=== PATIENT | female | born 1935 | race Two or more races ===

== ENCOUNTER 2017-11-08 07:18 | Outpatient (CLI) | payer OTHER | END 2017-11-08 08:00 | disposition home or self-care (01) | LOC: NUCLEAR 07:18 | DX: I11.9 Hypertensive heart disease without heart failure (principal); I20.0 Unstable angina | CPT/HCPCS: 78452; 93017; A9500 ==

== ENCOUNTER 2018-01-26 07:25 | Outpatient (CLI) | payer OTHER | END 2018-01-26 07:31 | disposition home or self-care (01) | LOC: TOM 07:25 | DX: K56.600 Partial intestinal obstruction, unspecified as to cause (principal); K56.51 Intestinal adhesions [bands], with partial obstruction; K63.5 Polyp of colon ==

== ENCOUNTER 2018-07-05 07:20 | Outpatient (CLI) | payer OTHER | END 2018-07-05 07:23 | disposition home or self-care (01) | LOC: SONOGRAMA 07:20 | DX: E03.0 Congenital hypothyroidism with diffuse goiter (principal); E04.8 Other specified nontoxic goiter ==

== ENCOUNTER 2018-07-08 13:05 | Outpatient (CLI) | payer OTHER | END 2018-07-08 13:15 | disposition home or self-care (01) | LOC: RAD 13:05 | DX: M81.0 Age-related osteoporosis without current pathological fracture (principal); M54.6 Pain in thoracic spine; M47.816 Spondylosis without myelopathy or radiculopathy, lumbar region ==

== ENCOUNTER 2018-07-27 09:49 | Outpatient (CLI) | payer OTHER | END 2018-07-27 10:02 | disposition home or self-care (01) | LOC: RAD 09:49 | DX: M54.5 Low back pain (principal) ==

== ENCOUNTER 2021-01-23 09:49 | Outpatient (CLI) | payer OTHER | END 2021-01-23 09:56 | disposition home or self-care (01) | LOC: MAMO-SONO 09:49 | DX: R92.8 Other abnormal and inconclusive findings on diagnostic imaging of breast (principal); Z12.31 Encounter for screening mammogram for malignant neoplasm of breast ==

== ENCOUNTER 2021-08-15 08:25 | Outpatient (CLI) | payer OTHER | END 2021-08-15 08:33 | disposition home or self-care (01) | LOC: RAD 08:25 | DX: S93.402A Sprain of unspecified ligament of left ankle, initial encounter (principal); M79.672 Pain in left foot; M25.572 Pain in left ankle and joints of left foot ==